=== PATIENT | female | born 1950 | race Caucasian/White ===

== ENCOUNTER 2024-04-06 13:15 | Outpatient (RCR) | payer MEDICARE, SELFPAY ==
--- NOTE | 2024-02-25 14:57 | OPREHPOC ---
Outpatient Therapy Plan of Care This is a Multidisciplinary Plan of Care that may contain components documented by all disciplines (PT, OT, and ST.) PT Problem 1 PT Problem #1 Knowledge Deficit PT Goal 1 Goal / Goal Update [place] with HEP Target Visit 4 PT Problem 2 PT Problem #2 Impaired Range of Motion PT Goal 1 Goal / Goal Update Demonstrate 40 degrees of denise hip abduction to reduce capsular restriction Target Visit 8 PT Problem 3 PT Problem #3 Impaired Strength PT Goal 1 Goal / Goal Update Improve denise hip abduction strength to 4/5 to improve lateral stability with gait and transfers Target Visit 8 PT Problem 4 PT Problem #4 Impaired Gait PT Goal 1 Goal / Goal Update Patient will ambulate independently with negative compensated Trendelenburg on R hip Target Visit 8
--- NOTE | 2024-02-25 14:57 | PTOPEVAL1 ---
Assessment and note entered by Tony Amor, PT Evaluation Information Assessment Status Evaluation ICD-10 Condition Codes (PT) R26.9,Weakness R53.1 Onset November 2023 Subjective Information Reports that she had a hip replacement about 6 years ago on the right side. Over the course of the past year she has noticed herself wobbling a lot more. She denies having any pain at this time. She is a little shaky when she initiates walking after sitting for a while. She feels that with increased distance her gait gets better. The faster she walks the more coordination she loses. Does not feel pain is limiting her. She has history of back surgery with sciatica and osteophyte removal. Reported Pain Level Pain Score 0: Self Report Assessment PT Clinical Summary Patient presents with significant weakness in denise hips increasing gait compensations and unsteadiness on feet. Patient will benefit from skilled therapy to address these deficits for overall functional strength and mobility improvement. Plan of Care Interventions Gait Training,Manual Therapy,Neuro Re-education, Therapeutic Activities,Therapeutic Exercise PT Services Indicated Yes Treatment Frequency and 2x/week for 8 visits Duration These treatments will address the objective and functional deficits as defined above. The patient will be advanced safely and appropriately in order for the patient to progress towards his/her prior level of function. Additional exercises will be introduced and as well as a comprehensive home exercise program upon discharge, if needed, ?to ensure carryover of functional gains achieved in the clinic. This treatment plan has been reviewed and agreement upon by the patient.
--- NOTE | 2024-04-06 14:11 | PTOPDC ---
Assessment and note entered by Tony Amor, PT Evaluation Information Assessment Status Discharge ICD-10 Condition Codes (PT) R26.9,Weakness R53.1 Onset November 2023 Subjective Information Denies any falls since starting therapy. She feels that she is much more balanced at this time. She feels more stable when walking and she is able to better navigate LE when going to step an turn at this time. Minimal soreness in hip during self massage. Her family has noticed that she has decreased gait alternations at this time. Assessment PT Clinical Summary Patient has met majority of goals for therapy at this time and is suitable for discharge to [facility]. She demonstrates compliance and understanding of [facility] and will benefit from continued home performance for senior living goal accomplishment. Plan of Care PT Services Indicated Yes
== END 2024-04-06 16:12 | disposition home or self-care (01) ==
LOC: ANHPT 13:15
PROVIDERS: PCP Internal Medicine; Visit Provider Internal Medicine
DX: R26.9 Unspecified abnormalities of gait and mobility (principal)
CPT/HCPCS: 97110; 97116; 97140; 97161; 97530

== ENCOUNTER 2024-08-21 14:27 | Outpatient (CLI) | payer MEDICARE, SELFPAY ==
--- NOTE | ~2024-08-21 | MM_ITS ---
EXAMINATION: MM screening [facility] BI w maría HISTORY: Screening TECHNIQUE: Craniocaudal and mediolateral oblique 3-D tomosynthesis images were obtained and synthetic 2-D images were generated. CAD analysis was submitted and interpreted. COMPARISON: 11/20/2006 BREAST PARENCHYMAL COMPOSITION: There are scattered areas of fibroglandular density. FINDINGS: Punctate calcifications are detected bilaterally, stable and benign in appearance. Punctate calcifications detected bilaterally, vascular in origin and benign in appearance. Otherwise unremarkable parenchymal pattern without suspicious microcalcifications, architectural dist ortion, discrete masses or significant asymmetry. IMPRESSION: 1. No mammographic/tomographic evidence of malignancy. 2. Recommend routine screening mammography in one year. BI-RADS Category 2: Benign finding(s). Reviewed, dictated and finalized at location A. H SCIENCE PROFESSOR
== END 2024-08-21 14:28 | disposition home or self-care (01) ==
LOC: MICIMG 14:27
PROVIDERS: PCP Internal Medicine; Visit Provider Internal Medicine
DX: Z12.31 Encounter for screening mammogram for malignant neoplasm of breast (principal)
CPT/HCPCS: 77063; 77067

== ENCOUNTER 2025-04-02 13:37 | Outpatient (CLI) | payer MEDICARE, SELFPAY ==
--- NOTE | ~2025-04-02 | XR_ITS ---
EXAMINATION: XR toe 1st LT min 2V, 04/02/2025 14:00 CDT HISTORY: CERVICALGIA;PAIN IN LEFT TOE COMPARISON: No comparisons available. Findings: Remote fracture distal aspect proximal phalanx with intra-articular extension. No acute fracture is identified Severe degenerative changes. Soft tissues unremarkable. Impression: No acute fracture or malalignment. Reviewed, dictated and finalized at location P. Impression: No acute fracture or malalignment.
--- NOTE | ~2025-04-02 | XR_ITS ---
XR cervical spine 4-5V Indication: CERVICALGIA;PAIN IN LEFT TOE Comparison: None Findings: No acute fracture or subluxation. Moderate loss of vertebral height throughout. Severe loss of disc height throughout with disc prostheses at C4-5 C5-6 and C6-7. Soft tissues unremarkable Impression: No acute abnormality. Reviewed, dictated and finalized at location P. Impression: No acute abnormality.
--- OUTSIDE RECORDS SUMMARY | 2025-04-02 13:48 | XMS_ITS | Clinical Summary ---
Author Organization [facility] Address [address] [address] Care Team Providers Care Neon Sign Worker Name Role Phone Jack Crews MD Primary Care Provider [phone] Allergies No known active allergies Medications multivitamin capsule Take 1 capsule by mouth every morning Active diclofenac DR (VOLTAREN) 75 mg EC tablet Take 1 tablet (75 mg total) by mouth 2 (two) times a day Active latanoprost (XALATAN) 0.005 % ophthalmic solution Administer 1 drop into both eyes nightly 8 9 Active timolol (TIMOPTIC) 0.5 % ophthalmic solution Administer 1 drop into both eyes daily before breakfast 5 Active HYDROcodone-toshia taminophen (NORCO) 5-325 mg per tabletIndicatio ns:Pain Take 1-2 tablets by mouth every 4 (four) hours as needed for pain 8 tablet 5 Active Active Problems Problem Noted Date Diagnosed Date Carpal tunnel syndrome of right wrist 11/12/2024 Carpal tunnel syndrome of left wrist 03/23/2022 Overview (03/23/2022): Added automatically from request for surgery [id number] Adhesive capsulitis of shoulder 08/22/2020 Benign essential hypertension 08/22/2020 Cervical arthritis 08/22/2020 Disorder of bursae of shoulder region 08/22/2020 Disorder of rotator cuff 08/22/2020 Electrocardiogram abnormal 08/22/2020 Fatigue 08/22/2020 Primary localized osteoarthritis of pelvic regio n and thigh 08/22/2020 Vitamin D deficiency 08/22/2020 Class 2 obesity in adult 06/30/2020 At risk for obstructive sleep apnea 06/30/2020 Shoulder arthritis 03/23/2020 Overview (03/23/2020): Added automatically from request for surgery [id number] Primary osteoarthritis of right hip 11/03/2017 Overview (11/27/2017): Added automatically from request for surgery [id number] Joint pain, hip 10/23/2017 Pain in the shoulder 02/05/2014 Immunizations Immunization Administration Dates Next Due Moderna SARS-CoV-2 Monovalent Vaccination (12+ Y RS) 08/11/2020 Surgical History Surgery Date Site/Laterality Comments ROTATOR CUFF REPAIR 05/17/2013 - 06/16/2013 Right REVERSE TOTAL SHOULDER ARTHROPLASTY 03/17/2015 - 04/16/2015 Right NECK SURGERY 06/17/2005 - 06/16/2006 Bone spur excision BACK SURGERY 06/17/1992 - 06/16/1993 Bone spur excision COLONOSCOPY 06/17/1999 - 06/16/2000 REVERSE TOTAL SHOULDER ARTHROPLASTY 07/05/2020 Left TOTAL HIP ARTHROPLASTY 01/13/2018 Right CARPAL TUNNEL RELEASE 06/17/2021 - 06/16/2022 Medical History Medical History Date Comments Generalized OA Bilateral hips, knees and shoulders Covid-19 03/2020 Glaucoma Both eyes HTN (hypertension) reports on me ds ~20 years ago and stopped per Dr after weight loss Family History Medical History Relation Name Comments Cancer Father Family history of malignant neoplasm - (Added by TW Conv) Lung disease Father Family history of lung disease - (Added by TW Conv) No Known Problems Mother Cancer Other 1 Family history of malignant neoplasm - Relation: Grandparent (Added by TW Conv) Lung disease Other 2 Family history of lung disease - Relation: Grandparent (Added by TW Conv) Diabetes Other 3 Family history of diabetes mellitus - Relation: Grandparent (Added by TW Conv) Anesthesia problems Neg Hx Relation Name Status Comments Father (Age 63) Lung and e sophageal CA Mother Alive Other 1 Other 2 Other 3 Social History Tobacco Use Types Packs/Day Years Used Date Smoking Tobacco: Never Smokeless Tobacco: Never Tobacco Cessation:Counseling Given: Not Answered Alcohol Use Standard Drinks/Week Comments Yes 4 (1 standard drink = 0.6 oz pur e alcohol) AUDIT-C Answer Date Recorded Q1: How often do you have a drink containing alc ohol? Monthly or less 12/15/2024 Q2: How many drinks containi ng alcohol do you have on a typical day when you are drinking? 1 or 2 12/15/2024 Q3: How often do you have si x or more drinks on one occasion? Never 12/15/2024 Personal Safety Answer Date Recorded Have you ever been in or are you currently in a harmful physical or emotional relationship or is someone making you feel afraid or unsafe? 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 Gender Identity Not on file Sexual Orientation Not on file Obstetrics History Last Filed Vital Signs Vital Sign Reading Time Taken Comments Blood Pressure 141/83 12/15/2024 10:50 AM CDT Pulse 58 12/15/2024 10:50 AM CDT Temperature 36.1 C (97 F) 12/15/2024 10:35 AM CDT Respiratory Rate 18 12/15/2024 10:50 AM CDT Oxygen Saturation 96% 12/15/2024 10:50 AM CDT Inhaled Oxygen Concentration - - Weight 86.2 kg (190 lb) 12/15/2024 8:02 AM CDT Height 158.8 cm (5' 2.5) 12/15/2024 8:02 AM CDT Body Mass Index 34.2 12/15/2024 8:02 AM CDT Plan of Treatment Health Maintenance Due Date Last Done Comments Breast Cancer Screening-Mammogram 1950 Colon Cancer Screening-Colonoscopy 1950 Depression Screening 1950 Hepatitis C Screening 1950 DTaP/Tdap/Td Vaccine (1 - Tdap) 1961 Hepatitis B Screening 1968 Pneumococcal vaccine 65+ (1 of 1 - PCV) 2000 Zoster Vaccine (1 of 2) 2000 Well Visit 65+ 2015 Osteoporosis Screening-Bone Density Scan 02/07/2025 02/07/2023 Covid-19 Vaccine (5 - 2024-2 6 season) 2025 06/28/2021, 08/31/2020, 08/11/2020, Additional history exists Influenza Vaccine (#1) 2025 Fall Risk Assessment 12/15/2025 12/15/2024 Medical Devices Implanted Type Area Campaign Worker Device Identifier Shelf Expiration Date Model / Serial / Lot Other - See Comments Other - see comments Right: Shoulder [employer] [id number] Ringloc 36mm High Wall Hip +3mm 23 Liner Acetabular Arcomxl - S0 - [id number] Implanted:Qty : 1 on 01/13/2018 by Vin Camara MD at [facility] Right: Hip [employer] [id number] 03/01/2022 [id number] / 0 / [id number] [employer] [id number] 6.5mm 45mm Low Profile Hip Acetabular Cancellous Dome Screw Bone - S0 - [id number] Implanted:Qty : 1 on 01/13/2018 by Vin Camara MD at [facility] Right: Hip [employer] 11/10/2026 [id number] / 0 / [id number] [employer] [id number] Ringloc+ 50mm Limit Hole Hip Shell Acetabular - S0 - [id number] Implanted:Qty : 1 on 01/13/2018 by Vin Camara MD at [facility] Right: Hip [employer] [id number] 12/28/2027 [id number] / 0 / [id number] [employer] [id number] Echo Bi-Metric 11mm 135mm Noncollar Reduce Proximal Profile Press - S0 - [id number] Implanted:Qty : 1 on 01/13/2018 by Vin Camara MD at [facility] Right: Hip [employer] [id number] 11/23/2027 [id number] / 0 / [id number] [employer] 650-1064 G7 Type 1 Hip -6mm Offset Taper Sleeve Centering Titanium Biolox - S0 - [id number] Implanted:Qty : 1 on 01/13/2018 by Vin Camara MD at [facility] Right: Hip [employer] [id number] 09/10/2027 650-1064 / 0 / [id number] [employer] 650-1057 G7 36mm Hip Head Femoral Biolox Delta Option - S0 - [id number] Implanted:Qty : 1 on 01/13/2018 by Vin Camara MD at [facility] Right: Hip [employer] [id number] 04/09/2027 650-1057 / 0 / [id number] [employer] 01.02498.036 Ncb Anatomical Shoulder 4.5mm 36mm Inverse Reverse Lock Self Tap - [id number] Implanted:Qty : 1 on 07/05/2020 by Randy Wharton MD at [facility] Left: Shoulder [employer] [id number] 08/14/2024 01.73194.036 / / [id number] [employer] 01.59784.048 Ncb Anatomical Shoulder 4.5mm 48mm Inverse Reverse Lock Self Tap - [id number] Implanted:Qty : 1 on 07/05/2020 by Randy Wharton MD at [facility] Left: Shoulder [employer] [id number] 02/14/2025 01.23742.048 / / [id number] [employer] [id number] Glenosphere 36mm +5mm Offset - [id number] Implanted:Qty : 1 on 07/05/2020 by Randy Wharton MD at [facility] Left: Shoulder [employer] [id number] 07/17/2029 [id number] / / [id number] [employer] [id number] 8mm 130mm Shoulder Stem Humeral Trabecular Metal Sterile Reverse - [id number] - [id number] Implanted:Qty : 1 on 07/05/2020 by Randy Wharton MD at [facility] Left: Shoulder [employer] [id number] 05/16/2025 [id number] / [id number] / [id number] [employer] [id number] 36mm Reverse Humerus 7d +0mm Offset Standard Liner Shoulder - [id number] Implanted:Qty : 1 on 07/05/2020 by Randy Wharton MD at [facility] Left: Shoulder [employer] [id number] 03/07/2028 [id number] / / [id number] Base Plate Implanted:Qty : 1 on 07/05/2020 by Randy Wharton MD at [facility] Left: Shoulder [employer] [id number] 03/16/2028 / [id number] / [id number] Description:This is not an i mplant see supply screen for charge [employer] [id number] Base Plate 26mm Tm Reverse 20m - [id number] - [id number] Implanted:Qty : 1 on 07/05/2020 by Rnady Wharton MD at [facility] Left: Shoulder [employer] [id number] 02/14/2029 [id number] / [id number] / [id number] Insurance [employer] , [place] [address] MEDICARE MEDICARE MEDICARE [employer] MEDICARE [employer] MEDICARE [facility] MEDICARE [employer] MEDICARE [employer] Advance Directives For more information, please contact: [phone] * Full Code (Latest Code Status on File) Date Activated Date Inactivated Comments 07/05/2020 3:59 PM 07/06/2020 6:03 PM * Full Code Date Activated Date Inactivated Comments 01/13/2018 2:31 PM 01/14/2018 3:58 PM Care Teams Neon Sign Worker Relationship Specialty Start Date End Date Jack Crews MD PCP - General 05/06/17
--- OUTSIDE RECORDS SUMMARY | 2025-04-02 13:48 | XMS_ITS | Encounter Summary ---
Author Organization [facility] Healthcare Address [address] [place] [address] Care Team Providers Care It Senior Software Engineer Java Name Role Phone Jack Crews MD Primary Care Provider [phone] Kavya Alvarze RN Unavailable Unavailable Encounter Details Date Type Department Care Team (Late st Contact Info) Description 01/14/2018 Documentation [facility] Case Management [address] [place] [address] Graciela Mims RN Social History Tobacco Use Types Packs/Day Years Used Date Smoking Tobacco: Never Smokeless Tobacco: Never Alcohol Use Standard Drinks/Week Comments Yes 4 (1 standard drink = 0.6 oz pur e alcohol) Comments No Sex and Gender Information Value Date Recorded Sex Assigned at Not on file 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
== END 2025-04-02 13:38 | disposition home or self-care (01) ==
LOC: ANHIMG 13:46
PROVIDERS: PCP Internal Medicine; Visit Provider Internal Medicine
DX: M79.675 Pain in left toe(s) (principal); M54.2 Cervicalgia
CPT/HCPCS: 72050; 73660